=== PATIENT | female | born 1965 | race Caucasian/White ===

== ENCOUNTER → 2021-09-01 | Day surgery (SDC) | payer OTHER ==
[~2021-09-01] MED LIST: ASPIRIN81 MG PO; BUPROPION XL150 MG PO; CETIRIZINE HCL10 MG PO; DEXAMETHASONE SOD PHOS INJ 4 MG/ML SDV ONE; EPINEPHRINE HCL 1:1000 1ML 1 MG/ML AMP ONE; FENTANYL CITRATE/PF 100MCG/2 ML INJ ONE; FEROSUL325 MG PO; HAIR SKIN NAIL1 EACH PO; LIDOCAINE 2% /EPINEPHRINE 20 ML SDV INJ ONE; METOCLOPRAMIDE HCL 10 MG/2ML VIAL ONE; OMEPRAZOLE40 MG PO; ONDANSETRON HCL INJ 2MG/ML 2ML 2 MG/ML VIAL ONE; PRENATAL CAPLE1 EACH PO; PROBIOTIC & AC1 EACH PO; SIMVASTATIN10 MG PO; [UNRECOGNIZED DRUG - OTHER] PO
[2021-09-01 13:40] VITALS: BP 157/88
== END | disposition home or self-care (01) ==
LOC: OR 09:04
PROVIDERS: ATTEND Otolaryngology Otolaryngology/Facial Plastic Surgery
DX: J32.0 Chronic maxillary sinusitis (principal); J32.2 Chronic ethmoidal sinusitis; J32.1 Chronic frontal sinusitis; J34.89 Other specified disorders of nose and nasal sinuses; J34.2 Deviated nasal septum; K21.9 Gastro-esophageal reflux disease without esophagitis; J45.909 Unspecified asthma, uncomplicated; F41.9 Anxiety disorder, unspecified; Z88.6 Allergy status to analgesic agent; Z88.1 Allergy status to other antibiotic agents; Z88.8 Allergy status to other drugs, medicaments and biological substances; Z87.891 Personal history of nicotine dependence
CPT/HCPCS: 30520; 31253; 31267; 87071; 87075; 87205; 88300; 88305; 93005; J0171; J2001; J2405; J2765; J3010; J1100